=== PATIENT | female | born 1970 | race African-American/Black ===

== ENCOUNTER 2020-11-19 09:24 | Emergency (ER) | payer OTHER ==
[~2020-11-19] VITALS: Ht 157.5 cm; Wt 68.0 kg
[2020-11-19 09:26] VITALS: BP 142/104
== END 2020-11-19 10:18 | disposition left against medical advice (07) ==
LOC: ER 09:24
DX: Z53.21 Procedure and treatment not carried out due to patient leaving prior to being seen by health care provider (principal)

== ENCOUNTER 2021-04-16 11:14 | Emergency (ER) | payer SELFPAY ==
[~2021-04-16] VITALS: Ht 160 cm; Wt 68.0 kg
[2021-04-16] MEDS ORDERED: NAPR-1176 MT (12:42)
[2021-04-16] MEDS ORDERED: IBUPROFEN 800MG TABLET PO ONE (12:45)
[2021-04-16 12:54] VITALS: BP 117/68
== END 2021-04-16 12:57 | disposition home or self-care (01) ==
LOC: ER 11:14
DX: S16.1XXA Strain of muscle, fascia and tendon at neck level, initial encounter (principal); S39.012A Strain of muscle, fascia and tendon of lower back, initial encounter; S40.012A Contusion of left shoulder, initial encounter; V43.52XA Car driver injured in collision with other type car in traffic accident, initial encounter; Y93.89 Activity, other specified; Y92.410 Unspecified street and highway as the place of occurrence of the external cause; Z88.0 Allergy status to penicillin; Z90.710 Acquired absence of both cervix and uterus; Z98.890 Other specified postprocedural states
CPT/HCPCS: 99282